=== PATIENT | female | born 2000 | race African-American/Black ===

== ENCOUNTER 2023-12-10 21:21 | Emergency (ER) ==
[~2023-12-10] VITALS: Ht 160 cm; Wt 65.6 kg
[2023-12-10 21:21] VITALS: BP 123/76; TEMP 98.4; O2SAT 100
[2023-12-11] MEDS ORDERED: IBUP200C25 PO (11:19)
== END 2023-12-10 22:24 | disposition left against medical advice (07) ==
LOC: M ED 21:21
DX: Z53.21 Procedure and treatment not carried out due to patient leaving prior to being seen by health care provider (principal)

== ENCOUNTER 2023-12-11 09:01 | Emergency (ER) | payer OTHER ==
[~2023-12-11] VITALS: Ht 160 cm; Wt 64.9 kg
[2023-12-11] MEDS ORDERED: IBUP200C25 PO (11:19)
[2023-12-11 12:48] VITALS: BP 116/59; TEMP 97.6; O2SAT 100
[2023-12-11] MEDS: IBUPROFEN 600MG TAB PO ONE (12:50)
== END 2023-12-11 12:59 | disposition home or self-care (01) ==
LOC: M ED 09:01
DX: S91.201A Unspecified open wound of right great toe with damage to nail, initial encounter (principal); W22.01XA Walked into wall, initial encounter; Y92.009 Unspecified place in unspecified non-institutional (private) residence as the place of occurrence of the external cause; Y93.89 Activity, other specified; Y99.9 Unspecified external cause status; Z91.010 Allergy to peanuts; Z79.1 Long term (current) use of non-steroidal anti-inflammatories (NSAID)